=== PATIENT | female | born 1995 | race Caucasian/White ===

== ENCOUNTER 2017-09-09 19:12 | Emergency (ER) | payer SELFPAY ==
[2017-09-09 19:30] VITALS: BP 118/66
[2017-09-09] MEDS ORDERED: Lidocaine 1%* 5 ML VIAL INJ ONE (19:36)
--- NOTE | 2017-09-09 19:40 | ED ---
Skin Complaint - HPI Summary HPI Summary: 22F presents with lesion to right side of chest wall for past two days. the area is painful. has been growing in size. no history of MRSA. no fevers or chills. is not diabetic. no drainage from area. no bug bite or scratch to the area. - History of Current Complaint Chief Complaint: UCSkin Time Seen by Provider: 09/09/17 19:32 Stated Complaint: PAINFUL BUMP ON CHEST Hx Last Menstrual Period: 08/19/17 Pain Intensity: 0 - Allergy/Home Medications Allergies/Adverse Reactions: Allergies Allergy/AdvReac Type Severity Reaction Status Date / Time Penicillins Allergy Rash Verified 09/09/17 19:34 bupropion [From Wellbutrin] AdvReac Nausea And Verified 09/09/17 19:34 Vomiting haloperidol [From Haldol] AdvReac Muscle Ache Verified 09/09/17 19:34 PMH/Surg Hx/FS Hx/Imm Hx Endocrine/Hematology History: Denies: Hx Anticoagulant Therapy Respiratory History: Reports: Hx Asthma - Cancer History Cancer Type, Location and Year: skin cancer age 5 - Surgical History Surgery Procedure, Year, and Place: D&C, tubal, hernia repair Infectious Disease History: No Infectious Disease History: Denies: Hx Clostridium Difficile, Traveled Outside the [place] in Last 30 Days - Family History Known Family History: Negative: Diabetes - Social History Alcohol Use: None Substance Use Type: Reports: None Smoking Status (MU): Never Smoked Tobacco Review of Systems Negative: Fever Negative: Chest Pain Negative: Shortness Of Breath Positive: Other - bump right side chest wall All Other Systems Reviewed And Are Negative: Yes Physical Exam Triage Information Reviewed: Yes Vital Signs On Initial Exam: Initial Vitals Temp Pulse Resp BP Pulse Ox 98.4 F 95 15 118/66 100 09/09/17 19:23 09/09/17 19:23 09/09/17 19:23 09/09/17 19:23 09/09/17 19:23 Vital Signs Reviewed: Yes Appearance: Positive: Well-Appearing Skin: Positive: Warm, Dry, Other - 2cm by 2cm area on right side of breast with flautance Head/Face: Positive: Normal Head/Face Inspection Eyes: Positive: Normal, Conjunctiva Clear ENT: Positive: Pharynx normal Respiratory/Lung Sounds: Positive: Clear to Auscultation, Breath Sounds Present Cardiovascular: Positive: Normal, RRR Musculoskeletal: Positive: Normal Neurological: Positive: Normal Psychiatric: Positive: Normal Procedures - Incision and Drainage right chest pain Site: right chest pain Anesthesia: Local Instrument(s): Needle Diagnostics - Vital Signs Vital Signs Temp Pulse Resp BP Pulse Ox 09/09/17 19:23 98.4 F 95 15 118/66 100 - Laboratory Lab Statement: Any lab studies that have been ordered have been reviewed, and results considered in the medical decision making process. Course/Dx - Course Course Of Treatment: 22F presents with lesion to right side of chest wall for past two days. the area is painful. has been growing in size. no history of MRSA. no fevers or chills. is not diabetic. no drainage from area. no bug bite or scratch to the area. on exam has 2cm by 2cm area of flautance on right side of chest. attempted I&D and got 1cc drainage with needle. will place on bactrim. patient understand and agrees with plan. - Differential Diagnoses - Skin Complaint Differential Diagnoses: Abscess, Cellulitis, Contact Dermatitis - Diagnoses Provider Diagnoses: Abscess Discharge - Sign-Out/Discharge Documenting (check all that apply): Discharge/Admit/Transfer - Discharge Plan Condition: Good Disposition: HOME Patient Education Materials: Abscess (ED) Referrals: [facility]YSICIAN REFERRAL [Outside] Additional Instructions: Take antibiotic twice a day for 10 days, first dose given in UC Apply warm compresses to area Take ibuprofen or Tylenol for pain every 6 hours Return to ED if develop fever, area of redness spreads, or any new or worsening symptoms - Billing Disposition and Condition Condition: GOOD Disposition: Home
[2017-09-09] MEDS ORDERED: Sulfamethox/Trimethoprim DS 800/160* TAB PO ONE (20:00)
--- NOTE | 2017-09-10 15:35 | UC ---
- Progress Note Progress Note: MRSA neg, s. Aureus neg culture pending on Bactrim - no change edis 09/10/2017 Course/Dx - Diagnoses Provider Diagnoses: Abscess Discharge - Sign-Out/Discharge Documenting (check all that apply): Post-Discharge Follow Up - Discharge Plan Condition: Good Disposition: HOME Prescriptions: Sulfamethox/Trimethoprim DS* [Bactrim DS 800/160 TAB*] 1 tab PO BID #19 tab Patient Education Materials: Abscess (ED) Referrals: [facility] [place] [facility] REFERRAL [Outside] Additional Instructions: Take antibiotic twice a day for 10 days, first dose given in UC Apply warm compresses to area Take ibuprofen or Tylenol for pain every 6 hours Return to ED if develop fever, area of redness spreads, or any new or worsening symptoms - Billing Disposition and Condition Condition: GOOD Disposition: Home
== END 2017-09-09 20:06 | disposition home or self-care (01) ==
LOC: UCCORT 19:12
DX: L02.213 Cutaneous abscess of chest wall (principal)
CPT/HCPCS: 10060; 87070; 87076; 87205; 87640; 87641; 99202; A9270-GY; G0463

== ENCOUNTER 2017-09-26 11:18 | Emergency (ER) | payer SELFPAY | END 2017-09-26 12:23 | disposition left against medical advice (07) | LOC: UCCORT 11:18 | DX: R10.9 Unspecified abdominal pain (principal); Z53.21 Procedure and treatment not carried out due to patient leaving prior to being seen by health care provider ==

== ENCOUNTER 2017-10-09 19:42 | Emergency (ER) | payer SELFPAY ==
[2017-10-09 21:13] LABS: ABS Basophils 0 10^3/ul (0-0.2); ABS Eosinophils 0.3 10^3/ul (0-0.6); ABS Lymphocytes 2.4 10^3/ul (1.0-4.8); ABS Monocytes 0.3 10^3/ul (0-0.8); ABS Neutrophils 4.8 10^3/ul (1.5-7.7); ABS Nucleated RBC 0 10^3/ul; Eosinophil % 3.7 % (0-6); Hematocrit 34 % (35-47); Hemoglobin 11.5 g/dl (12.0-16.0); Lymphocyte % 30.5 % (25-47); Mean Corpuscular HGB Conc 33 g/dl (31-36); Mean Corpuscular Hemoglobin 27 pg (27-31); Mean Corpuscular Volume 79 fL (80-97); Mean Platelet Volume 7.6 um3 (7.4-10.4); Nucleated Red Blood Cells % 0; Platelet Count 228 10^3/ul (150-450); Red Blood Count 4.33 10^6/ul (4.00-5.40); Red Cell Distribution Width 15 % (10.5-15); White Blood Count 7.9 10^3/ul (3.5-10.8)
[2017-10-09 21:21] LABS: EGFR Non-African American 121.5 (>60)
[2017-10-09 21:22] LABS: Urine Red Blood Cell 2+(6-10/hpf) (Absent); Urine White Blood Cell Trace(0-5/hpf) (Absent)
[2017-10-09 21:51] LABS: Urine Appearance Cloudy; Urine Blood Negative (Negative); Urine Color Yellow; Urine Ketones Negative (Negative); Urine Protein Negative (Negative); Urine Urobilinogen Negative (Negative)
[2017-10-09] MEDS ORDERED: Ketorolac INJ* 30 MG/ML 1 ML VIAL IM ONE (22:56)
--- NOTE | 2017-10-10 00:09 | ED ---
GI/ HPI - HPI Summary HPI Summary: 22-year-old female presents with right-sided bowel pain for the past couple days. She says a history of this. She was seen at [facility] and told has duodenitis versus pancreatitis a couple weeks ago in [place]. She states that she also has history of ovarian cysts. Denies any previous belly surgery. No vomiting. No diarrhea or constipation. no pain with urination. No abnormal vaginal discharge. No flank pain. no Hematuria. - History of Current Complaint Chief Complaint: EDAbdPain Time Seen by Provider: 10/09/17 21:03 Stated Complaint: ABD PAINB Hx Last Menstrual Period: 08/19/17 Pain Intensity: 6 - Allergy/Home Medications Allergies/Adverse Reactions: Allergies Allergy/AdvReac Type Severity Reaction Status Date / Time fluoxetine [From Prozac] Allergy Nausea And Verified 10/09/17 19:45 Vomiting Penicillins Allergy Rash Verified 09/09/17 19:34 bupropion [From Wellbutrin] AdvReac Nausea And Verified 09/09/17 19:34 Vomiting haloperidol [From Haldol] AdvReac Muscle Ache Verified 09/09/17 19:34 PMH/Surg Hx/FS Hx/Imm Hx Endocrine/Hematology History: Denies: Hx Anticoagulant Therapy Respiratory History: Reports: Hx Asthma - Cancer History Cancer Type, Location and Year: skin cancer age 5 - Surgical History Surgery Procedure, Year, and Place: D&C, tubal, hernia repair Infectious Disease History: No Infectious Disease History: Denies: Hx Clostridium Difficile, Traveled Outside the [place] in Last 30 Days - Family History Known Family History: Negative: Diabetes - Social History Alcohol Use: None Substance Use Type: Reports: None Smoking Status (MU): Never Smoked Tobacco Review of Systems Negative: Fever Negative: Chest Pain Negative: Shortness Of Breath Positive: Abdominal Pain, Nausea. Negative: Vomiting All Other Systems Reviewed And Are Negative: Yes Physical Exam Triage Information Reviewed: Yes Vital Signs On Initial Exam: Initial Vitals Temp Pulse Resp BP Pulse Ox 98.6 F 96 18 112/62 98 10/09/17 19:45 10/09/17 19:45 10/09/17 19:45 10/09/17 19:45 10/09/17 19:45 Vital Signs Reviewed: Yes Appearance: Positive: Well-Appearing Skin: Positive: Warm, Dry Head/Face: Positive: Normal Head/Face Inspection Eyes: Positive: Normal, Conjunctiva Clear ENT: Positive: Pharynx normal Respiratory/Lung Sounds: Positive: Clear to Auscultation, Breath Sounds Present Cardiovascular: Positive: Normal, RRR Abdomen Description: Positive: Soft, Other: - tenderness right side abdomen Bowel Sounds: Positive: Present Musculoskeletal: Positive: Normal Neurological: Positive: Normal Psychiatric: Positive: Normal Diagnostics - Vital Signs Vital Signs Temp Pulse Resp BP Pulse Ox 10/09/17 19:45 98.6 F 96 18 112/62 98 - Laboratory Lab Results: Lab Results 10/09/17 10/09/17 10/09/17 Range/Units 20:53 20:53 21:02 WBC 7.9 (3.5-10.8) 10^3/ul RBC 4.33 (4.00-5.40) 10^6/ul Hgb 11.5 L (12.0-16.0) g/dl Hct 34 L (35-47) % MCV 79 L (80-97) fL MCH 27 (27-31) pg MCHC 33 (31-36) g/dl RDW 15 (10.5-15) % Plt Count 228 (150-450) 10^3/ul MPV 7.6 (7.4-10.4) um3 Neut % (Auto) 61.0 (38-83) % Lymph % (Auto) 30.5 (25-47) % [place] % (Auto) 4.3 (0-7) % Eos % (Auto) 3.7 (0-6) % Baso % (Auto) 0.5 (0-2) % Absolute Neuts (auto) 4.8 (1.5-7.7) 10^3/ul Absolute Lymphs (auto) 2.4 (1.0-4.8) 10^3/ul Absolute Monos (auto) 0.3 (0-0.8) 10^3/ul Absolute Eos (auto) 0.3 (0-0.6) 10^3/ul Absolute Basos (auto) 0 (0-0.2) 10^3/ul Absolute Nucleated RBC 0 10^3/ul Nucleated RBC % 0 Sodium 139 (135-145) mmol/L Potassium 4.1 (3.5-5.0) mmol/L Chloride 107 (101-111) mmol/L Carbon Dioxide 28 (22-32) mmol/L Anion Gap 4 (2-11) mmol/L BUN 14 (6-24) mg/dL Creatinine 0.61 (0.51-0.95) mg/dL Est GFR ( Amer) 147.1 (>60) Est GFR (Non-Af Amer) 121.5 (>60) BUN/Creatinine Ratio 23.0 H (8-20) Glucose 94 (70-100) mg/dL Calcium 8.9 (8.6-10.3) mg/dL Total Bilirubin 0.20 (0.2-1.0) mg/dL AST 59 H (13-39) U/L ALT 77 H (7-52) U/L Alkaline Phosphatase 67 (34-104) U/L C-Reactive Protein 5.05 (<8.01) mg/L Total Protein 6.9 (6.4-8.9) g/dL Albumin 4.0 (3.2-5.2) g/dL Globulin 2.9 (2-4) g/dL Albumin/Globulin Ratio 1.4 (1-3) Amylase 46 (29-103) U/L Lipase 87 H (11.0-82.0) U/L Beta HCG, Quant < 0.60 mIU/mL Urine Color Yellow Urine Appearance Cloudy Urine pH 7.0 (5-9) Ur Specific [place] 1.020 (1.010-1.030) Urine Protein Negative (Negative) Urine Ketones Negative (Negative) Urine Blood Negative (Negative) Urine Nitrate Negative (Negative) Urine Bilirubin Negative (Negative) Urine Urobilinogen Negative (Negative) Ur Leukocyte Esterase Negative (Negative) Urine WBC (Auto) Trace(0-5/hpf) (Absent) Urine RBC (Auto) 2+(6-10/hpf) A (Absent) Ur Squamous Epith Cells Present A (Absent) Urine Bacteria Absent (Absent) Urine Glucose Negative (Negative) Urine Ascorbic Acid Not Reportable Result Diagrams: 10/09/17 20:53 10/09/17 20:53 Lab Statement: Any lab studies that have been ordered have been reviewed, and results considered in the medical decision making process. - Ultrasound No standard instances Ultrasound Interpretation: Positive (See Comments) - hemorrhagic cyst Ultrasound Interpretation Completed By: Radiologist GIGU Course/Dx - Course Course Of Treatment: 22-year-old female presents with right-sided bowel pain for the past couple days. She says a history of this. She was seen at [facility] and told has duodenitis versus pancreatitis a couple weeks ago in [place]. She states that she also has history of ovarian cysts. Denies any previous belly surgery. No vomiting. No diarrhea or constipation. no pain with urination. No abnormal vaginal discharge. No flank pain. no Hematuria. On exam has tenderness right in that abdomen. wbcnormal. Lipase is only mildly elevated. Amylase normal. gallbladder ultrasound normal. Pancreas normal. Ovarian ultrasound shows hemorrhagic cyst. Explained pain likely from this. Will follow up with [facility]. Patient understands and agrees plan. - Diagnoses Differential Diagnoses - Female: Cholelithiasis, Ovarian Cyst, Pancreatitis Provider Diagnoses: Hemorrhagic ovarian cyst Discharge - Sign-Out/Discharge Documenting (check all that apply): Patient Departure - Discharge Plan Condition: Good Disposition: HOME Patient Education Materials: Ovarian Cyst (ED) Referrals: No Primary Care Phys,NOPCP [Primary Care Provider] - Additional Instructions: Take Tylenol or ibuprofen every 6 hours for pain Follow up with obgyn Return to ED if develop any new or worsening symptoms - Billing Disposition and Condition Condition: GOOD Disposition: Home
[2017-10-10 01:20] VITALS: BP 106/63
--- NOTE | 2017-10-10 08:12 | RAD ---
Indication: RIGHT upper quadrant abdominal pain Comparison: No relevant prior exams available on the [facility] [place] for comparison. Technique: RIGHT upper quadrant ultrasound. Report: Appropriate direction flow documented in the portal and hepatic veins. 16.7 cm liver is normal in echogenicity. Negative for focal hepatic lesions. Negative for intrahepatic biliary dilatation. 3.6 mm common bile duct. Adequately distended gallbladder with normal 2.9 mm wall is without pathologic finding. Negative for sonographic Cheng's sign. Unremarkable well visualized pancreas. Negative for ascites. 11.3 cm RIGHT kidney is unremarkable. IMPRESSION: #. Negative RIGHT upper quadrant ultrasound.
--- NOTE | 2017-10-10 08:14 | RAD ---
HISTORY: RLQ pain, h/o ovarian cyst COMPARISONS: None TECHNIQUE: Multiple transverse and longitudinal ultrasound images were obtained of the pelvis using grayscale, color Doppler, and spectral Doppler imaging using the endovaginal transducer. FINDINGS: UTERUS: The uterus measures 9.2 x 5.8 x 6.7 cm. The uterus is normal in shape, size, contour, and echotexture. ENDOMETRIUM: The endometrial stripe is smooth. The endometrium measures 1.1 cm in thickness. CUL-DE-SAC: There is a small amount of free fluid within the right adnexa. RIGHT OVARY: The right ovary measures 6.6 x 4.9 x 5.9 cm. Normal arterial and venous waveforms are identifiable within the ovary on spectral Doppler imaging. There is a 4.4 x 4.5 x 3.8 cm hemorrhagic cyst with retracting clot. LEFT OVARY: The left ovary measures 4. 2 x 2 by 3.3 cm. Normal arterial and venous waveforms are identifiable within the ovary on spectral Doppler imaging. BLADDER: The bladder is not well visualized. OTHER: None IMPRESSION: 1. 4.5 CM RIGHT OVARIAN HEMORRHAGIC CYST. 2. NO SONOGRAPHIC FEATURES OF TORSION. PLEASE NOTE THAT PARTIAL OR INTERMITTENT TORSION MAY BE SONOGRAPHICALLY NORMAL.
== END 2017-10-10 00:52 | disposition home or self-care (01) ==
LOC: ED 19:42
DX: N83.201 Unspecified ovarian cyst, right side (principal); Z88.0 Allergy status to penicillin; Z88.8 Allergy status to other drugs, medicaments and biological substances
CPT/HCPCS: 36415; 76705; 76830; 80053; 81003; 82150; 83690; 84702; 85025; 86140; 87086; 96372; 99282; J1885

== ENCOUNTER 2017-12-13 02:28 | Emergency (ER) | payer SELFPAY ==
[2017-12-13] MEDS ORDERED: Ibuprofen TAB* 800 MG PO ONE (04:00)
[2017-12-13] MEDS ORDERED: oxyCODONE/Acetamin 5/325 MG* TAB PO ONE (04:00)
--- NOTE | 2017-12-13 04:34 | ED ---
Lower Extremity - HPI Summary HPI Summary: The pt is a 22 y.o female who is presenting to the [facility] with a chief complaint of left ankle pain. The mechanism of injury described as a large heavy object ( pallet) falling on her left ankle at work. The pallet was 20 lbs and the onset of the injury was at 0130. The patient rates the pain 5/10 in severity. Symptoms aggravated by palpation. Symptoms alleviated by nothing. She also states she has been unable to ambulate since the injury. - History of Current Complaint Chief Complaint: EDExtremityLower Stated Complaint: LT FOOT INJURY Time Seen by Provider: 12/13/17 03:46 Hx Obtained From: Patient Hx Last Menstrual Period: 08/19/17 Mechanism Of Injury: Other - Heavy object falling on the pt's foot. Onset of Pain: Hours - 0130 Onset/Duration: Hours - 5 hours Severity Initially: Moderate Severity Currently: Moderate Pain Intensity: 5 Pain Scale Used: 0-10 Numeric Location: Is Discrete @ - Left ankle Associated Signs And Symptoms: Positive: Negative Aggravating Factor(s): Other - palpation Alleviating Factor(s): Nothing Able to Bear Weight: No - Pt is unable to ambulate - Allergies/Home Medications Allergies/Adverse Reactions: Allergies Allergy/AdvReac Type Severity Reaction Status Date / Time fluoxetine [From Prozac] Allergy Nausea And Verified 12/13/17 02:34 Vomiting Penicillins Allergy Rash Verified 12/13/17 02:34 bupropion [From Wellbutrin] AdvReac Nausea And Verified 12/13/17 02:34 Vomiting haloperidol [From Haldol] AdvReac Muscle Ache Verified 12/13/17 02:34 PMH/Surg Hx/FS Hx/Imm Hx Endocrine/Hematology History: Denies: Hx Anticoagulant Therapy Respiratory History: Reports: Hx Asthma Sensory History: Denies: Hx Deafness Opthamlomology History: Denies: Hx Legally Blind - Cancer History Cancer Type, Location and Year: skin cancer age 5 - Surgical History Surgery Procedure, Year, and Place: D&C, tubal, hernia repair Infectious Disease History: No Infectious Disease History: Denies: Hx Clostridium Difficile, Traveled Outside the [place] in Last 30 Days - Family History Known Family History: Negative: Diabetes Family History: Reviewed and noncontributory. - Social History Occupation: Employed Full-time Alcohol Use: None Substance Use Type: Reports: None Smoking Status (MU): Never Smoked Tobacco Review of Systems Constitutional: Negative Eyes: Negative ENT: Negative Cardiovascular: Negative Respiratory: Negative Gastrointestinal: Negative Positive: no symptoms reported Musculoskeletal: Other - Left ankle pain Positive: Other - Unable to ambulate using left ankle Skin: Negative Neurological: Negative Psychological: Normal All Other Systems Reviewed And Are Negative: Yes Physical Exam - Summary Physical Exam Summary: VITAL SIGNS: Reviewed. GENERAL: Patient is a well-developed and nourished (FEMALE) who is lying comfortable in the stretcher. Patient is not in any acute respiratory distress. HEAD AND FACE: No signs of trauma. No ecchymosis, hematomas or skull depressions. No sinus tenderness. EYES: PERRLA, EOMI x 2, No injected conjunctiva, no nystagmus. EARS: Hearing grossly intact. Ear canals and tympanic membranes are within normal limits. MOUTH: Oropharynx within normal limits. NECK: Supple, trachea is midline, no adenopathy, no JVD, no carotid bruit, no c- spine tenderness, neck with full ROM. CHEST: Symmetric, no tenderness at palpation LUNGS: Clear to auscultation bilaterally. No wheezing or crackles. CVS: Regular rate and rhythm, S1 and S2 present, no murmurs or gallops appreciated. ABDOMEN: Soft, non-tender. No signs of distention. No rebound no guarding, and no masses palpated. Bowel sounds are normal. EXTREMITIES: Tenderness of the left ankle and no swelling. NEURO: Alert and oriented x 3. No acute neurological deficits. Speech is normal and follows commands. Neurovascular exam is intact. SKIN: Dry and warm Triage Information Reviewed: Yes Vital Signs On Initial Exam: Initial Vitals Temp Pulse Resp BP Pulse Ox 97.5 F 90 16 115/59 98 12/13/17 02:30 12/13/17 02:30 12/13/17 02:30 12/13/17 02:30 12/13/17 02:30 Vital Signs Reviewed: Yes Diagnostics - Vital Signs Vital Signs Temp Pulse Resp BP Pulse Ox 12/13/17 04:28 16 12/13/17 02:30 97.5 F 90 16 115/59 98 - Laboratory Lab Statement: Any lab studies that have been ordered have been reviewed, and results considered in the medical decision making process. Lower Extremity Course/Dx - Course Course Of Treatment: The pt is a 22 y.o female with a chief complaint of left ankle pain. The pt in the [facility] recieved foot and ankle x-rays. The X-rays revealed negative findings. The pt will be discharged home with a recommendation to follow up with orthopedist. The dx will be foot and ankle sprain. - Diagnoses Provider Diagnoses: Foot sprain, Ankle sprain Discharge - Sign-Out/Discharge Documenting (check all that apply): Patient Departure - Discharge home, Post- Discharge Follow Up - Follow up with orthopedist - Discharge Plan Condition: Stable Disposition: HOME Prescriptions: Ibuprofen TAB* [Motrin TAB* 800 MG] 800 mg PO Q6H PRN #30 tab PRN Reason: Pain Patient Education Materials: Ankle Sprain (ED), Foot Sprain (ED) Forms: *Work Release Referrals: Nela Londono MD [Medical Doctor] - Additional Instructions: The patient should follow up with Orthopedist within 1 to 2 days. RETURN TO THE EMERGENCY DEPARTMENT FOR CHANGING OR WORSENING SYMPTOMS. - Attestation Statements Document Initiated by Scribe: Yes Documenting Scribe: Levar Arreguin Provider For Whom Scribe is Documenting (Include Credential): Dr. Mathew Garza Scribe Attestation: Levar Rust, robby for Dr. Mathew Garza on 12/13/17 at 0554.
[2017-12-13 05:57] VITALS: BP 120/78
--- NOTE | 2017-12-13 07:58 | RAD ---
INDICATION: Pain after a pallet fell on the left foot COMPARISON: None. TECHNIQUE: 3 views of the left ankle and 3 views of the left foot were obtained. FINDINGS: The well corticated bones exhibit normal alignment. Joint spaces appear maintained. No fracture is seen. IMPRESSION: NO RADIOGRAPHICALLY APPARENT FRACTURE OF THE LEFT FOOT OR ANKLE. If the patient's symptoms persist, follow-up imaging is recommended. R0
== END 2017-12-13 05:53 | disposition home or self-care (01) ==
LOC: ED 02:28
DX: S93.402A Sprain of unspecified ligament of left ankle, initial encounter (principal); S93.602A Unspecified sprain of left foot, initial encounter; Z85.828 Personal history of other malignant neoplasm of skin; W20.8XXA Other cause of strike by thrown, projected or falling object, initial encounter; Y92.9 Unspecified place or not applicable; Y99.0 Civilian activity done for income or pay
CPT/HCPCS: 99282; A9270-GY